=== PATIENT | female | born 1975 | race Caucasian/White ===

== ENCOUNTER 2017-03-31 19:34 | Emergency (ER) | payer OTHER | END 2017-03-31 21:45 | disposition home or self-care (01) | LOC: ER 19:34 | DX: S51.812A Laceration without foreign body of left forearm, initial encounter (principal); M25.562 Pain in left knee; V86.99XA Unspecified occupant of other special all-terrain or other off-road motor vehicle injured in nontraffic accident, initial encounter; Y92.838 Other recreation area as the place of occurrence of the external cause; Z23 Encounter for immunization; Z79.899 Other long term (current) drug therapy; Z88.0 Allergy status to penicillin; Z88.1 Allergy status to other antibiotic agents | CPT/HCPCS: 12001; 73564; 90471; 90715; 99070; 99283-25 ==